=== PATIENT | male | born 1940 | race Caucasian/White ===

== ENCOUNTER 2017-06-16 13:57 | Inpatient (IN) | payer MEDICARE ==
[~2017-06-16] VITALS: Ht 180.3 cm; Wt 103.3 kg
[~2017-06-16 13:57] MED LIST: AMLO5TAB2 PO; ASPI81TA18 PO; CALC0.5C6 PO; CYAN1000VL IM; DRIS50002 PO; FINA5TAB2 PO; FURO40TA2 PO; GLIM1TAB PO; IRON65TA PO; METO1TAB32 PO; NEPHTAB PO; PHOS667C5 PO; PROC1INJ5 IJ; TAMS0.4C2 PO; TYLE325T5 PO; VITA500T PO
[2017-06-16] MEDS ORDERED: RENATAB5 PO (14:07)
[2017-06-16] MEDS ORDERED: LEVO500T3 PO (14:07)
[2017-06-16] MEDS ORDERED: K-TA10TA PO (14:07)
[2017-06-16 14:57] LABS: ADD MORPHOLOGY? YES; BASO % 0.2 % (0.0-1.0); EOS # 0.2 K/mm3 (0.0-0.50); EOS % 1.9 % (0.0-3.0); LARGE UNSTAINED CELL # 0.2 K/mm3 (0.0-0.4); LYMPH # 4.3 K/mm3 (1.5-4.5); LYMPH % 33.3 % (24.0-44.0); MEAN CORPUSCULAR HEMOGLOBIN 35.1 pg (27.0-33.0); MEAN CORPUSCULAR VOLUME 106.5 fl (80.0-96.0); MONO # 0.8 K/mm3 (0.0-0.8); MONO % 6.3 % (0.0-5.0); NEUTROPHILS # 6.8 K/mm3 (1.8-7.7); NEUTROPHILS % 56.4 % (36.0-66.0); PLATELET COUNT, AUTOMATED 263 k/mm3 (150-450); RED CELL DISTRIBUTION WIDTH 15.6 % (11.5-14.5)
[2017-06-16 15:28] LABS: ALBUMIN 2.1 GM/DL (3.2-5.2); ALBUMIN/GLOBULIN RATIO 0.51 (1.00-1.93); BILIRUBIN,DIRECT 0.1 MG/DL (0.0-0.2); BILIRUBIN,TOTAL 0.4 MG/DL (0.2-1.0); CALCIUM LEVEL 7.6 MG/DL (8.8-10.2); CREATININE FOR GFR 7.91 MG/DL (0.70-1.30); GLOMERULAR FILTRATION RATE 7.1 (>42); POTASSIUM SERUM 2.5 MEQ/L (3.5-5.1); TOTAL PROTEIN 6.2 GM/DL (6.4-8.2)
[2017-06-16 15:33] LABS: ANISOCYTOSIS 2+
[2017-06-16] MEDS ORDERED: GLIM4TAB PO (15:41)
[2017-06-16] MEDS ORDERED: ASCO500T PO (15:41)
[2017-06-16] MEDS ORDERED: METO25TA4 PO (15:41)
[2017-06-16] MEDS ORDERED: [UNRECOGNIZED DRUG - CODE] INJ (15:41)
[2017-06-16] MEDS ORDERED: FLOM5CAP PO (15:41)
[2017-06-16] MEDS ORDERED: NS 1,000 ML IV SCH (15:44)
[2017-06-16] MEDS ORDERED: POTASSIUM CHLORIDE 10 MEQ SR TABLET PO ONE ×2 (15:45→20:00)
[2017-06-16] MEDS ORDERED: KCL 10MEQ IN 100ML SWI (KRUN) 10 MEQ in APPROPRIATE DILUENT 1 EA IV ONE ×2 (15:45)
[2017-06-16] MEDS ORDERED: LevoFLOXacin IV 750 MG in APPROPRIATE DILUENT 1 EA IV ONE (16:00)
[2017-06-16] MEDS ORDERED: PROMETHAZINE INJ 25 MG/ML VIAL (J2550) IV ONE (16:15)
[2017-06-16] MEDS ORDERED: ONDANSETRON 4MG/2ML VIAL (J2405) IV ONE (16:15)
[2017-06-16] MEDS ORDERED: ACETAMINOPHEN TAB 650MG DOSE (2X325MG) PO PRN (18:00)
[2017-06-16] MEDS ORDERED: GLUCOSE 4 GM CHEW TABLET PO PRN (18:00)
[2017-06-16] MEDS ORDERED: GLUCAGON FOR INJ 1 MG VIAL (J1610) SC PRN (18:00)
[2017-06-16] MEDS ORDERED: DEXTROSE 50% 50 ML SYRINGE IV PRN (18:00)
[2017-06-16] MEDS ORDERED: KCL 20MEQ in NS 1000ML 1,000 ML IV SCH (18:00)
[2017-06-16] MEDS ORDERED: PROMETHAZINE INJ 25 MG/ML VIAL (J2550) IM PRN (18:00)
--- NOTE | 2017-06-16 18:41 | REP ---
Clinical: Nausea and vomiting with diarrhea. Comparison: 11/16/2015. Findings: Moderate amount of ascites appreciated and peritoneal dialysis catheter is identified in the pelvis. Hepatic and splenic calcifications suggest prior granulomas disease. Pancreas, gallbladder, and bilateral adrenal glands are relatively normal. Right kidney is unremarkable. Left kidney demonstrates multiple rounded lesions predominantly of low density, but with few basilar rim calcifications and increased density suggesting both simple and complex cysts measuring up to 3.5 cm diameter and essentially unchanged compared to 09/22/2015. The bowel gas pattern is nonspecific and evidence for postsurgical changes with an anastomosis noted in the right lower quadrant. Pelvis demonstrates collapsed bladder and enlarged heterogeneous prostate gland measuring greater than 7.5 cm maximal diameter. No free air. No adenopathy. Atherosclerotic changes of the aorta and vasculature noted without aneurysm. Musculoskeletal structures demonstrate age-related degenerative changes without focal osseous abnormality. Lung bases demonstrate small left pleural effusion/reaction. The previously identified hematoma in the midline anterior abdominal wall has resolved. Impression: 1. Moderate amount of abdominal fluid consistent with peritoneal dialysis. 2. Simple and complex left renal cysts essentially unchanged compared to 09/22/2015. 3. Enlarged heterogeneous prostate gland measuring greater than 7.5 cm maximal diameter. 4. Further chronic changes as described above. 5. No obvious acute abdominopelvic pathology otherwise appreciated. However evaluation is limited by the lack of both oral and intravenous contrast material. Signed by Rex Cardenas MD 06/16/2017 06:31 P
[2017-06-16 19:14] LABS: CALCIUM LEVEL 7.6 MG/DL (8.8-10.2); CREATININE FOR GFR 8.15 MG/DL (0.70-1.30); GLOMERULAR FILTRATION RATE 6.8 (>42); MAGNESIUM LEVEL 1.2 MG/DL (1.8-2.4); POTASSIUM SERUM 2.6 MEQ/L (3.5-5.1)
[2017-06-16] MEDS: MAG SULF 1GM/100ML (MAG RUN) 1 GM in APPROPRIATE DILUENT 1 EA IV SCH (20:00)
[2017-06-16] MEDS ORDERED: MAG SULF 1GM/100ML (MAG RUN) 1 GM in APPROPRIATE DILUENT 1 EA IV ONE (20:00)
[2017-06-16] MEDS ORDERED: CEFEPIME HCL 0.5 GM in D5W MINI-BAG PLUS 50 ML IV SCH (20:30)
[2017-06-16] MEDS: HumaLOG INSULIN (NovoLOG) PER UNIT SC SCH (21:00)
[2017-06-16 21:15] VITALS: BP 150/62
[2017-06-16] MEDS: LACTOBACILLUS ACIDOPHILUS CAP (BACID) PO SCH (21:44)
[2017-06-16] MEDS: TAMSULOSIN 0.4 MG CAP PO SCH (21:44)
[2017-06-16] MEDS: FERROUS SULFATE 325MG TAB PO SCH (21:44)
[2017-06-16] MEDS: KCL 10MEQ IN 100ML SWI (KRUN) 10 MEQ in APPROPRIATE DILUENT 1 EA IV SCH ×2 (21:46)
[2017-06-16] MEDS: POTASSIUM CHLORIDE 10 MEQ SR TABLET PO SCH (21:51)
[2017-06-16] MEDS: METOPROLOL TART 25 MG TABLET PO SCH (21:51)
--- NOTE | 2017-06-16 21:59 | HPEPDOC ---
General Date of Admission Other Providers PCP: Dr. Kay Attending Physician: BELINDA ESTEVES MD Chief Complaint The patient is a 76-year-old male admitted with a reason for visit of Nausea/ Vomiting. History of Present Illness Patient is a pleasant 76-year-old male with past medical history significant for end-stage renal disease on peroneal dialysis, type 2 diabetes, coronary artery disease with 2 stent placement, hypertension, previous pulmonary embolism presents to the emergency room with a one-week history of vomiting diarrhea and chills. Patient states this all began around Monday. He was not feeling himself and not feeling well. He discussed this with Dr. Brock and prescribe patient antibiotics for his peritonitis. Patient reported vomiting every single day. He reports vomiting every time he eats. He vomited so much she lost count and doesn't remember how many times a day. Patient also reports having diarrhea since this started. He describes it as watery and brown. Patient reports having abdominal discomforts feels like lots of gas. His is new for him. Denies any blood per rectum or black stool. Patient missed to having chills but denies any bright years. Reported that he had a temperature of 95F yesterday. Did not take his temperature. But has self reported fever. Since patient was not improving he called the office today. Was told to go to the hospital to receive IV antibiotics. Home Medications Scheduled (Iron) 325 Mg Tab, 325 MG PO BID, (Reported) (Aspirin EC Low Dose) 81 Mg Tab, 81 MG PO DAILY, (Reported) (Sandi-Deisy) 1 Tab Tab, 1 TAB PO DAILY, (Reported) Ascorbic Acid (Ascorbic Acid) 500 Mg Tab, 500 MG PO DAILY, (Reported) Calcium Acetate (Phoslo) 667 Mg Cap, 667 MG PO WM, (Reported) HAS NOT BEEN EATING, SO HAS NOT TAKEN IN APPROX A WEEK Glimepiride (Glimepiride) 4 Mg Tab, 4 MG PO BID, (Reported) Levofloxacin Hemihydrate (Levofloxacin) 500 Mg Tab, 500 MG PO Q2D, (Reported) FILL 06/13 FOR 16 DAYS Methoxy Polyethylene Glycol-Ep (Mircera) 100 Mcg/0.3 Ml Inj, 300 MCG INJ Q2WK, ( Reported) Metoprolol Tartrate (Metoprolol Tartrate) 25 Mg Tab, 25 MG PO BID, (Reported) Potassium Chloride (K-Tabs) 10 Meq Tab, 10 MEQ PO BID, (Reported) Tamsulosin Hydrochloride (Flomax) 0.4 Mg Cap, 0.4 MG PO QHS, (Reported) Scheduled PRN Acetaminophen (Tylenol) 325 Mg Tab, 650 MG PO Q6HP PRN for PAIN / FEVER, ( Reported) Allergies Coded Allergies: No Known Allergies (Unverified , 06/16/17) Past Medical History Medical History 1. End-stage renal disease with peritoneal dialysis 2. Anemia chronic disease 3. History of pulmonary embolism 4. Type 2 diabetes 5. Coronary disease with stent placements 2. Last one being 2002 6. Aortic valve stenosis 7. Hyperlipidemia 8. BPH Surgical History 1. Peritoneal dialysis placement Review of Symptoms Constitutional: Reports: Chills, Fever, Denies: Night Sweats, Weakness, Fatigue Eyes: Denies: Pain, Vision change ENT: Reports: Head Aches (off-and-on. Not every day. Did not take anything for it.) Skin: Denies: Rash, Lesions, Jaundice Pulmonary: Denies: Dyspnea Cardiovascular: Denies: Chest Pain, Palpitations Gastrointestinal: Reports: Nausea, Vomiting, Other Symptoms (bloating.) Genitourinary: Reports: Other Symptoms (still urinating.), Denies: Dysuria, Frequency Hematologic: Denies: Bruising, Bleeding Excessively Endocrine: Denies: Polydipsia, Polyphagia Musculoskeletal: Denies: Neck Pain Neurological: Denies: Change in speech, Confusion Psych: Reports: Mood Normal Physical Examination General Exam: Positive: Alert, Other (patient's orientated to the date of , place, season. Not orientated to date. 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 moist/pink, Pharynx Normal, Tongue Midline, Nares Patent, Other ENT (No tonsilar exudates. ), Negative: Pharyngeal Edema Neck Exam: Negative: Supple, JVD, thyromegaly Chest Exam: Positive: Clear to auscultation, Normal air movement, Negative: Rales, Wheezing Heart Exam: Positive: Rate Normal, Normal S1, Normal S2, Negative: Bradycardic Telemetry: Positive: PVCs Abdomen Exam: Positive: Soft, Other (Distended. Diminished bowel sounds. ), Negative: Tenderness Extremity Exam: Negative: Clubbing, Cyanosis, Edema Skin Exam: Positive: Nl turgor and temperature, Negative: Rash, Breakdown Neuro Exam: Positive: Strength at 5/5 X4 ext (Upper and lower extremity. ) Psych Exam: Positive: Mood NL Vital Signs Vital Signs Date Time Temp Pulse Resp B/P (MAP) Pulse Ox O2 Delivery O2 Flow Rate FiO2 06/16/17 19:13 98 98 06/16/17 18:58 134/63 (86) 06/16/17 13:59 97.3 16 Room Air Laboratory Data Labs 24H Laboratory Tests 2 06/16/17 14:36: White Blood Count 12.0H, Red Blood Count 3.25L, Hemoglobin 11.4L, Hematocrit 34.6L, Mean Corpuscular Volume 106.5H, Mean Corpuscular Hemoglobin 35.1H, Mean Corpuscular Hemoglobin Concent 33.0, Red Cell Distribution Width 15.6H, Platelet Count 263, Neutrophils (%) (Auto) 56.4, Lymphocytes (%) (Auto) 33.3, Monocytes (%) (Auto) 6.3H, Eosinophils (%) (Auto) 1.9, Basophils (%) (Auto) 0.2 , Neutrophils # (Auto) 6.8, Lymphocytes # (Auto) 4.3, Monocytes # (Auto) 0.8, Eosinophils # (Auto) 0.2, Basophils # (Auto) 0.0, Large Unclassified Cells % 2.0 , Large Unclassified Cells # 0.2, Platelet Estimate NORMAL, Anisocytosis 2+, Macrocytosis 2+, Anion Gap 15, Glomerular Filtration Rate 7.1L, Calcium Level 7.6L, Aspartate Amino Transf (AST/SGOT) 14L, Alanine Aminotransferase (ALT/SGPT ) 27, Alkaline Phosphatase 115, Total Bilirubin 0.4, Direct Bilirubin 0.1, Total Protein 6.2L, Albumin 2.1L, Albumin/Globulin Ratio 0.51L, Lipase 400H 06/16/17 15:05: Urine Appearance HAZY, Urine Color YELLOW, Urine pH 5.0, Urine Specific [place] 1.039, Urine Protein 2+H, Urine Glucose (UA) 3+H, Urine Ketones NEGATIVE, Urine Urobilinogen 0.2, Urine Bilirubin NEGATIVE, Urine Leukocyte Esterase 1+H, Urine Blood NEGATIVE, Urine Nitrite NEGATIVE, Urine WBC (Auto) 53H, Urine RBC (Auto) 4H, Urine Hyaline Casts (Auto) 0, Urine Bacteria (Auto) 1+H, Urine Squamous Epithelial Cells 9, Urine Transitional Epithelial Cells 1, Urine Amorphous Sediment SMALLH, Urine Mucus (Auto) SMALL, Urine Sperm (Auto) 06/16/17 18:28: Anion Gap 14, Glomerular Filtration Rate 6.8L, Calcium Level 7.6L, Lactic Acid Level 3.9*H, Blood Urea Nitrogen 37H, Creatinine 8.15H, Sodium Level 138, Potassium Level 2.6*L, Chloride Level 97L, Carbon Dioxide Level 27, Magnesium Level 1.2L, C-Reactive Protein, Quantitative 1.78H CBC/BMP Laboratory Tests 06/16/17 14:36 Red Blood Count 3.25 L, Mean Corpuscular Volume 106.5 H, Mean Corpuscular Hemoglobin 35.1 H, Mean Corpuscular Hemoglobin Concent 33.0, Red Cell Distribution Width 15.6 H, Neutrophils (%) (Auto) 56.4, Lymphocytes (%) (Auto) 33.3, Monocytes (%) (Auto) 6.3 H, Eosinophils (%) (Auto) 1.9, Basophils (%) ( Auto) 0.2, Neutrophils # (Auto) 6.8, Lymphocytes # (Auto) 4.3, Monocytes # (Auto ) 0.8, Eosinophils # (Auto) 0.2, Basophils # (Auto) 0.0 06/16/17 18:28 Calcium Level 7.6 L Microbiology Microbiology 06/16/17 Blood Culture, Received Pending 06/16/17 Blood Culture, Received Pending 06/16/17 Urine Culture, Received Pending Assessment/Plan 1. Peritonitis Patient was on antibiotic outpatient. Started on IV antibiotics in ER. Patient was given Levaquin and will be started on Cefepime. Consulting Nephrology. Called and discussed patient. Agreed to see patient. Appreciate their assistance in management of patient at this time. Monitoring WBC, temperature. Ordering c reactive protein. 2. Nausea and vomiting, diarrhea GI panel ordered for possible infectious causes. Monitoring electrolytes with BMP q6h. Continuing Phenergan q6h prn for nausea. Patient had relief in ER. Starting patient on bacid to decreased chance of C. diff. Ordering lactic acid. 3. Hypokalemia K was 2.5 in ER. Patient received IV and oral K. Monitoring K. 4. Chronic kidney disease, Peritoneal dialysis Nephrology consulted. Monitoring creatinine and urine output. Continue IV fluids. 5. Hypertension holding HCTZ at this time. Continue Metoprolol. monitor BP. 6. BPH Continue flomax. monitor urine output. 7. Diabetes, type II Holding home medication, Glimepiride. Starting insulin with sliding scale. Hypoglycemic protocol. Plan / VTE VTE Prophylaxis Ordered?: Yes (knee high. Heparin. ) Plan Plan Clear Liquid Diet. PT consult. GME ATTESTATION GME ATTESTATION My preceptor for this patient encounter was physically present in the building during the encounter and was fully available. As needed, all aspects of the patient interview, examination, medical decision making process, and medical care plan development were reviewed and approved by the preceptor. Preceptor is aware and concurs with the plan as stated in the body of this note and will attest to such by his/her cosignature. ATTENDING NOTE Patient seen and examined. Case discussed with the resident in detail. Agree with above. TESHA Prince MD, DO Jun 16, 2017 20:08 BELINDA ESTEVES MD Jun 19, 2017 11:49
[2017-06-16] MEDS: CEFEPIME HCL 1 GM in D5W MINI-BAG PLUS 50 ML IV SCH (23:11)
[2017-06-16 23:59] VITALS: BP 128/69
[2017-06-17] MEDS: MAG SULF 1GM/100ML (MAG RUN) 1 GM in APPROPRIATE DILUENT 1 EA IV SCH (00:10)
[2017-06-17] MEDS: GENTAMICIN SULF INJ 80MG/2ML VIAL (J1580) IP SCH ×2 (00:29→21:23)
[2017-06-17] MEDS: KCL 10MEQ IN 100ML SWI (KRUN) 10 MEQ in APPROPRIATE DILUENT 1 EA IV SCH ×2 (00:30)
[2017-06-17 00:32] LABS: CALCIUM LEVEL 7.2 MG/DL (8.8-10.2); CREATININE FOR GFR 8.5 MG/DL (0.70-1.30); GLOMERULAR FILTRATION RATE 6.5 (>42); MAGNESIUM LEVEL 1.5 MG/DL (1.8-2.4); POTASSIUM SERUM 2.8 MEQ/L (3.5-5.1)
[2017-06-17] MEDS ORDERED: POTASSIUM CHLORIDE 10 MEQ SR TABLET PO ONE ×2 (01:00→09:15)
[2017-06-17] MEDS: POTASSIUM CHLORIDE INJ 40 MEQ in NS 0.45% 1,000 ML IV SCH ×3 (01:41→22:06)
[2017-06-17 02:46] LABS: PERITONEAL DIALYSATE FL COLOR PALE YELLOW (COLORLESS)
[2017-06-17 02:48] LABS: BF DIFF IF INDICATED? YES (NO); RBC PERITONEAL DIALYSATE < 10 (<10mm3 cells/uL); TNC PERITONEAL DIALYSATE 96 cells/uL (0-20)
[2017-06-17 03:08] LABS: CC BF DIFF EXAM CYTOCENTRIFUGE
[2017-06-17 04:45] VITALS: BP 128/67
[2017-06-17 05:49] LABS: CALCIUM LEVEL 7.4 MG/DL (8.8-10.2); CREATININE FOR GFR 8.49 MG/DL (0.70-1.30); GLOMERULAR FILTRATION RATE 6.5 (>42); MAGNESIUM LEVEL 1.7 MG/DL (1.8-2.4); PHOSPHORUS LEVEL 3.2 MG/DL (2.5-4.9); POTASSIUM SERUM 3.1 MEQ/L (3.5-5.1)
[2017-06-17] MEDS: HumaLOG INSULIN (NovoLOG) PER UNIT SC SCH ×4 (07:22→21:00)
[2017-06-17 07:53] VITALS: BP 121/59
[2017-06-17] MEDS: CALCIUM ACETATE 667 MG GELCAP PO SCH ×3 (08:00→17:51)
[2017-06-17] MEDS: POTASSIUM CHLORIDE 10 MEQ SR TABLET PO SCH ×3 (09:00→21:22)
[2017-06-17] MEDS: ASPIRIN 81 MG ENTERIC TAB PO SCH (09:03)
[2017-06-17] MEDS: METOPROLOL TART 25 MG TABLET PO SCH ×2 (09:03→21:23)
[2017-06-17] MEDS: FERROUS SULFATE 325MG TAB PO SCH ×2 (09:03→21:22)
[2017-06-17] MEDS: ASCORBIC ACID 500 MG TAB PO SCH (09:03)
[2017-06-17] MEDS: HEPARIN SOD (PORCINE) 5000 UNITS/ML VIAL SC SCH ×2 (09:03→21:22)
[2017-06-17] MEDS: LACTOBACILLUS ACIDOPHILUS CAP (BACID) PO SCH ×3 (09:03→21:22)
[2017-06-17] MEDS: MAGNESIUM OXIDE 400 MG TAB (MAG-OX) PO SCH (09:53)
[2017-06-17] MEDS ORDERED: CALCIUM GLUCONATE 1,000 MG in D5W MINI-BAG PLUS 100 ML IV ONE (10:00)
[2017-06-17] MEDS ORDERED: MAG SULF 1GM/100ML (MAG RUN) 1 GM in APPROPRIATE DILUENT 1 EA IV ONE (11:00)
[2017-06-17 11:49] VITALS: BP 127/60
[2017-06-17] MEDS ORDERED: CALCIUM CARBONATE 500 MG CHEW U/D PO ONE (12:00)
[2017-06-17 13:41] LABS: MEAN CORPUSCULAR HEMOGLOBIN 36.4 pg (27.0-33.0); MEAN CORPUSCULAR VOLUME 107.1 fl (80.0-96.0); RED CELL DISTRIBUTION WIDTH 15.4 % (11.5-14.5); WHITE BLOOD COUNT 12.3 K/mm3 (4.0-10.0)
[2017-06-17 13:50] LABS: CALCIUM LEVEL 7.7 MG/DL (8.8-10.2); CREATININE FOR GFR 8.18 MG/DL (0.70-1.30); GLOMERULAR FILTRATION RATE 6.8 (>42); MAGNESIUM LEVEL 1.9 MG/DL (1.8-2.4); POTASSIUM SERUM 3.6 MEQ/L (3.5-5.1)
--- NOTE | 2017-06-17 14:04 | IPNPDOC ---
Text Note Date of Service The patient was seen on 06/17/17. NOTE CC:The patient is a 76-year-old male admitted with a reason for visit of Nausea/ Vomiting. Subjective: Patient notes improvement. Denies any abdominal pain or nausea. Feels a lot better since being in the hospital. Was not able to urinate, states he usually is able to have a little. No bloating. Patient's is planning on coming back to visit patient later today. Discussed fishing with patient. Seems more lively today. Objective: Vitals: (see below) General: No acute distress, lying comfortably in bed. HEENT: Moist mucous membranes. Neck: No JVD or lymphadenopathy Cardiac: Normal s1 and s2. No murmurs. Pulm: Clear to auscultation bilateral. No wheezing, rhonchi Abd: Round. Distension. Bowel sounds to auscultation. No tenderness to palpation. Ext: No edema or cyanosis. Pysch: Normal affect. Labs (see below) Images: Assessment/Plan 1. Peritonitis: Patient was on antibiotic outpatient. Started on IV antibiotics in ER. Levaquin discontinued. Continue patient on Cefepime and Gentamicin. Consulting Nephrology. Appreciate their assistance in management of patient at this time. Monitoring WBC, temperature. Afebrile. Blood culture x2 pending. Urine culture no growth. Peritoneal fluid gram stain: moderate WBCs, no organisms. GI panel ordered. Item Value Date Time White Blood Count 12.3 K/mm3 H 06/17/17 0504 2. Nausea and vomiting, diarrhea: GI panel ordered for possible infectious causes. Monitoring electrolytes with BMP q6h. Phenergan q6h prn for nausea. Patient had relief in ER. Continue patient on Bacid to decreased chance of C. diff. Recent lactic acid 3.7. May be due to patient's dehydration. On IV fluids at this time. Patient had some heart burn this morning. Giving patient some Tums one time and reassess. 3. Hypokalemia: K improved to 3.1 this morning. Patient received IV and oral K overnight. Patient is receiving peritoneal dialysis. 4. Chronic kidney disease, Peritoneal dialysis: Nephrology consulted. Monitoring creatinine and urine output. Continue IV fluids. 5. Hypertension: holding HCTZ at this time. Continue Metoprolol. monitor BP. 6. BPH: Continue flomax. monitor urine output. 7. Diabetes, type II: Holding home medication, Glimepiride. Starting insulin with sliding scale. Hypoglycemic protocol. Monitoring patient's glucose. Low this morning. DVT prophy:inés HULL. Dispo: Monitoring patient. Appreciate assistance of nephrology for care of this patient. Continue antibiotics. VS,Fishbone, I+O VS, Fishbone, I+O Laboratory Tests 06/16/17 14:36 Red Blood Count 3.25 L, Mean Corpuscular Volume 106.5 H, Mean Corpuscular Hemoglobin 35.1 H, Mean Corpuscular Hemoglobin Concent 33.0, Red Cell Distribution Width 15.6 H, Neutrophils (%) (Auto) 56.4, Lymphocytes (%) (Auto) 33.3, Monocytes (%) (Auto) 6.3 H, Eosinophils (%) (Auto) 1.9, Basophils (%) ( Auto) 0.2, Neutrophils # (Auto) 6.8, Lymphocytes # (Auto) 4.3, Monocytes # (Auto ) 0.8, Eosinophils # (Auto) 0.2, Basophils # (Auto) 0.0 06/16/17 18:28 Calcium Level 7.6 L 06/16/17 23:49 Calcium Level 7.2 L 06/17/17 05:03 Calcium Level 7.4 L Vital Signs Date Time Temp Pulse Resp B/P (MAP) Pulse Ox O2 Delivery O2 Flow Rate FiO2 06/17/17 11:49 96.7 72 18 127/60 (82) 100 Room Air I&O- Last 24 Hours up to 6 AM 06/17/17 06:00 Intake Total 3150 ml Output Total 1540 ml Balance 1610 ml GME ATTESTATION GME ATTESTATION I have both independently examined this patient as well as reviewed the dictated note. I have discussed in detail with the resident the findings and plan of treatment as documented in the residents note. I will continue to follow the patient and offer further guidance to the patients care as necessary during this hospital stay. TESHA WALKER DO Jun 17, 2017 13:10 SOLOMON MCWILLIAMS MD Jun 19, 2017 15:32
[2017-06-17 16:00] VITALS: BP 144/64
[2017-06-17 18:38] LABS: CALCIUM LEVEL 7.4 MG/DL (8.8-10.2); CREATININE FOR GFR 7.92 MG/DL (0.70-1.30); GLOMERULAR FILTRATION RATE 7.1 (>42); MAGNESIUM LEVEL 1.8 MG/DL (1.8-2.4); POTASSIUM SERUM 3.7 MEQ/L (3.5-5.1)
--- NOTE | 2017-06-17 18:47 | CR ---
DATE OF CONSULTATION: 06/17/2017 REQUESTING PHYSICIAN: Dr. Jose Walton. CONSULTING PHYSICIAN: Dr. Carr. REASON FOR CONSULTATION: Management of end-stage renal disease peritoneal dialysis, and acute peritonitis. CHIEF COMPLAINT: The patient presented to the emergency room with nausea and vomiting, and recent diagnosis of acute peritonitis. HISTORY OF PRESENT ILLNESS: Efraín Gould is a 76-year-old male with past medical history of end-stage renal disease on peritoneal dialysis, type 2 diabetic, multiple other comorbidities as mentioned below. He presented to the emergency room because [facility] because of persistent nausea, vomiting, diarrhea, chills, decreased appetite. He was diagnosed as acute peritonitis as outpatient. He was given intraperitoneal vancomycin and gentamicin, and he was also being given oral Levaquin, but his symptoms did not get better with the intraperitoneal intravenous (IV) antibiotics. He kept on throwing up. He was unable to keep any food down, and because of the abdominal discomfort and not feeling well, the patient was sent to the emergency room for further evaluation and management of peritonitis as inpatient. The patient was discussed with the on-call resident overnight by me. I already started him on intraperitoneal gentamicin. He was started on IV Levaquin. Peritoneal fluid cell count and culture and panculture were sent. I saw the patient today morning and patient reports that he is feeling a lot better since the time he came yesterday. He was also hydrated with IV fluids. Nephrology service is now following the patient for management of peritonitis, sepsis, end-stage renal disease, peritoneal dialysis, and multiple electrolyte abnormalities. PAST MEDICAL HISTORY: The patient has a past medical history of: 1. End-stage renal disease on peritoneal dialysis. 2. Diabetes mellitus type 2. 3. Coronary artery disease status post stents in the past. 4. Hyperlipidemia. 5. Benign prostatic hypertrophy (BPH). 6. Anemia. 7. Chronic kidney disease. PAST SURGICAL HISTORY: The patient has a past surgical history of: 1. Peritoneal dialysis catheter placement. 2. Coronary artery stent, latest one in 2002. ALLERGIES: The patient has no known drug allergies. FAMILY HISTORY: No significant family history of end-stage renal disease requiring hemodialysis. SOCIAL HISTORY: The patient denies any illicit drug abuse or alcohol abuse. REVIEW OF SYSTEMS: CONSTITUTIONAL: The patient reports fevers with chills, decreased appetite. EYES: He denies any blurry vision or double vision. ENT: He denies any dysphagia, odynophagia or ear discharge. CARDIOVASCULAR: He denies any chest pain or palpitations. RESPIRATORY: The patient denies any shortness of breath, cough or wheezing. GASTROINTESTINAL (GI): Patient reports nausea, vomiting, loose stools, pain abdomen and bloating. GENITOURINARY: He denies any dysuria or hematuria. HEMATOLOGIC/ONCOLOGIC: He denies any easy bruising or bleeding tendency. ENDOCRINE: Patient reports history of diabetes. MUSCULOSKELETAL: He denies any muscles aches and pains. CENTRAL NERVOUS SYSTEM (PACKAGING MATERIALS INSPECTOR): The patient denies any weakness, numbness or transient ischemic attack (TIA) in the past. PSYCHIATRIC: The patient denies any depression or anxiety. SKIN: He denies any rashes or ulcers. All other review of systems is negative. PHYSICAL EXAMINATION: GENERAL: The patient is awake, alert, and oriented times three, sitting in bed in no apparent distress. VITAL SIGNS: Temperature is 96.7 degrees Fahrenheit, blood pressure 127/60, pulse is 72, respiratory rate of 18, saturating 100% on room air. Intake and output: Urine output is not recorded. The patient is at 1200 mL positive according to peritoneal dialysis intake and output. HEAD/NECK: Extraocular muscles intact. Pupils equal, round, and reactive to light. Mucous membranes are moist. Neck is supple. There is no jugular venous distention (JVD). CARDIOVASCULAR: S1, S2. Regular rate. No murmur, rub, or gallop. RESPIRATORY: Clear to auscultation bilaterally. Bilateral equal air entry. No rales or rhonchi. ABDOMEN: Soft. Positive bowel sounds. Nontender. No rebound tenderness. The patient has left lower quadrant peritoneal dialysis catheter with clean exit site and clean tunnel. MUSCULOSKELETAL: No clubbing or cyanosis. Pulses are 2+. No edema of the extremities. CENTRAL NERVOUS SYSTEM (PACKAGING MATERIALS INSPECTOR): No focal neurological deficits. Power is 5/5 in all extremities. PSYCHIATRIC: Normal mood and affect. SKIN: No rashes or ulcers. LYMPHATIC: No significant cervical, axillary, or inguinal lymphadenopathy. LABORATORY DATA: CBC showed a WBC of 12, hemoglobin 11.4, platelets were 263. Urinalysis showed 2+ protein, negative nitrite, 1+ leukocyte esterase, and 53 WBC. Peritoneal fluid cell count was 96 and 40% of them were neutrophils, 49% lymphocytes, which indicates partially treated peritonitis. BMP done today showed sodium 138, potassium 3.6, chloride 100, bicarbonate 24, BUN 37, creatinine 8.1, glucose 138, lactic acid is three. Calcium 7.7. Ionized calcium is four. Phosphorus is 3.2. Magnesium was 1.7. Lactate was 3.7 this morning and repeat one is three. MICROBIOLOGY: Blood cultures negative so far. Urine culture is negative so far. Gram's stain of the peritoneal fluid showed moderate WBC, no organisms. GI panel is pending. IMAGING: CT scan of the abdomen and pelvis was done yesterday. It showed moderate amount of abdominal fluid consistent with peritoneal dialysis. No acute abdominal pathology. CURRENT INPATIENT MEDICATIONS: The patient's medications are all reviewed by me. He was given a dose of calcium gluconate 1 gram IV times one dose. He is currently on cefepime 1 gram IV every 48 hours. The patient was also given a dose of Levaquin in the emergency room. He got a dose of magnesium sulfate 1 gram IV yesterday, and another gram was ordered today morning. The patient is on half normal saline with 40 mEq of potassium at 100 mL an hour. - he is on vitamin C 500 mg daily - aspirin 81 mg daily - Phos-Lo one tablet with meals - TUMS 1 gram by mouth one dose - ferrous sulfate 325 mg by mouth twice a day - gentamicin 40 mg intraperitoneal daily - heparin subcutaneous - insulin sliding scale - magnesium oxide 400 mg by mouth daily - Lopressor 25 mg by mouth twice a day - Zofran as needed - potassium chloride 40 mEq by mouth twice a day - Flomax 0.4 mg by mouth at bedtime ASSESSMENT: A 76-year-old male with past medical history of end-stage renal disease on peritoneal dialysis, diabetes mellitus type 2, hypertension, coronary artery disease, admitted this time because of sepsis secondary to acute peritonitis, along with multiple electrolyte abnormalities. PLAN: 1. Acute peritonitis: The patient was empirically being treated with Levaquin and gentamicin. His peritoneal fluid cultures came back positive at peritoneal dialysis center. I would obtain the culture report after the weekend. As reported to me on admission, the culture was sensitive to gentamicin and Levaquin. I have continued the intraperitoneal gentamicin. His IV antibiotic has been started on cefepime which should ideally cover the peritoneal infection. The patient's lactate was high. He has been started on IV fluid hydration and lactate is slowly trending down. 2. Nausea, vomiting: It was most likely secondary to acute peritonitis and multiple electrolyte abnormalities. The patient is being hydrated with IV fluids. He is symptomatically getting better. 3. Severe hypokalemia: The patient had a potassium of 2.5 on admission. His IV fluids have been changed to half normal saline plus 40 mEq potassium chloride. The patient was also given IV potassium on admission. I have also started him on potassium chloride 40 mEq by mouth twice a day. 4. Hypocalcemia: The patient's ionized calcium is four, which is low. The patient was given a gram of calcium gluconate IV times one dose. He was also given a dose of TUMS orally by the primary team. 5. Hypomagnesemia: The patient was given magnesium sulfate 1 gram IV times two doses. Repeat magnesium level is better. 6. Hypertension: Blood pressure is acceptable at this time. Continue metoprolol. No tight blood pressure control in this patient with sepsis secondary to acute peritonitis. 7. Diabetes mellitus type 2: Continue insulin sliding scale as per primary team. Sulfonylurea was held by the primary team on admission. 8. Anemia secondary to end-stage renal disease: The patient's hemoglobin is 10.3 which is acceptable at this time. No need of Aranesp administration at this time. Thank you for involving us in the care of this patient. We shall be happy to follow the patient along with you tomorrow morning. The plan of care was discussed with the on-call resident overnight by me already. Medication orders were changed.
--- NOTE | 2017-06-17 19:18 | ECGEPIP ---
Stationary ECG Study [facility] - ED Test Date: 2017-06-16 Pat Name: BOBY CUNNINGHAM Department: Room: - Gender: M Product Marketing Intern: rn : 1940 Requested By: JUAN RAMON Knott Order Number: [id number] Reading MD: Margarito Miranda Measurements Intervals [address] Rate: 80 P: 84 NC: 190 QRS: -57 QRSD: 134 T: 86 QT: 428 QTc: 495 Interpretive Statements SINUS RHYTHM WITH FREQUENT VENTRICULAR PREMATURE COMPLEXES WITH OCCASIONAL SUPRAVENTRICULAR PREMATURE COMPLEXES INTRAVENTRICULAR CONDUCTION DELAY LEFT VENTRICULAR HYPERTROPHY AND ST-T CHANGE CW 11/16/15 RATE INCREAESED INCREASED ECTOPY AXIS CHANGE Electronically Signed On 06-17-2017 19:18:04 EDT by Margarito Miranda
[2017-06-17 19:41] VITALS: BP 172/82
[2017-06-17] MEDS: TAMSULOSIN 0.4 MG CAP PO SCH (21:22)
[2017-06-17 22:43] LABS: CREATININE FOR GFR 7.77 MG/DL (0.70-1.30); GLOMERULAR FILTRATION RATE 7.2 (>42); MAGNESIUM LEVEL 1.9 MG/DL (1.8-2.4); POTASSIUM SERUM 3.6 MEQ/L (3.5-5.1)
[2017-06-17 23:59] VITALS: BP 126/61
[2017-06-18 04:26] VITALS: BP 147/66
[2017-06-18 06:38] LABS: MEAN CORPUSCULAR HGB CONC 33.6 g/dl (32.0-36.5); MEAN CORPUSCULAR VOLUME 107.3 fl (80.0-96.0); RED CELL DISTRIBUTION WIDTH 15.5 % (11.5-14.5); WHITE BLOOD COUNT 10.7 K/mm3 (4.0-10.0)
[2017-06-18 06:52] LABS: CALCIUM LEVEL 7.8 MG/DL (8.8-10.2); CREATININE FOR GFR 7.45 MG/DL (0.70-1.30); GLOMERULAR FILTRATION RATE 7.6 (>42); MAGNESIUM LEVEL 1.7 MG/DL (1.8-2.4); POTASSIUM SERUM 4.3 MEQ/L (3.5-5.1)
[2017-06-18] MEDS: ONDANSETRON 4MG/2ML VIAL (J2405) IV PRN (07:16)
[2017-06-18 07:47] LABS: BF DIFF IF INDICATED? NO (NO); PERITONEAL FL COLOR COLORLESS (COLORLESS); RBC PERITONEAL FLUID < 10 (<10mm3 cells/uL); TNC PERITONEAL FLUID < 20 cells/uL (0-20)
[2017-06-18 08:00] VITALS: BP 127/61
[2017-06-18] MEDS: HEPARIN SOD (PORCINE) 5000 UNITS/ML VIAL SC SCH ×2 (08:33→21:07)
[2017-06-18] MEDS: METOPROLOL TART 25 MG TABLET PO SCH ×2 (08:33→21:06)
[2017-06-18] MEDS: ASPIRIN 81 MG ENTERIC TAB PO SCH (08:33)
[2017-06-18] MEDS: LACTOBACILLUS ACIDOPHILUS CAP (BACID) PO SCH ×3 (08:33→21:05)
[2017-06-18] MEDS: MAGNESIUM OXIDE 400 MG TAB (MAG-OX) PO SCH ×2 (08:33→21:06)
[2017-06-18] MEDS: HumaLOG INSULIN (NovoLOG) PER UNIT SC SCH ×4 (08:35→21:00)
[2017-06-18] MEDS: POTASSIUM CHLORIDE INJ 40 MEQ in NS 0.45% 1,000 ML IV SCH (08:37)
[2017-06-18] MEDS ORDERED: PROMETHAZINE INJ 25 MG/ML VIAL (J2550) IV PRN (09:15)
[2017-06-18] MEDS: POTASSIUM CHLORIDE 10 MEQ SR TABLET PO SCH (09:54)
[2017-06-18] MEDS: CALCIUM ACETATE 667 MG GELCAP PO SCH ×3 (09:54→17:08)
[2017-06-18] MEDS: ASCORBIC ACID 500 MG TAB PO SCH (09:55)
[2017-06-18] MEDS: FERROUS SULFATE 325MG TAB PO SCH (09:55)
[2017-06-18] MEDS ORDERED: CALCIUM GLUCONATE 1,000 MG in D5W MINI-BAG PLUS 100 ML IV ONE (11:00)
[2017-06-18 12:00] VITALS: BP 130/60
[2017-06-18] MEDS ORDERED: MAG SULF 1GM/100ML (MAG RUN) 1 GM in APPROPRIATE DILUENT 1 EA IV ONE (12:00)
--- NOTE | 2017-06-18 12:10 | IPN ---
DATE: 06/18/2017 Mr. Gould is feeling somewhat more nauseous this morning. He is not nauseous at baseline but when he tried to take in some Jello. He became nauseous. He has not vomited. He has not been able to take his pills. No abdominal pain. Temperature 97.5, pulse 91, respiratory rate 20, blood pressure 127/61, 98% room air. Positive fluid balance 2530. Two bowel movements noted thus far today. He is awake, appears somewhat uncomfortable lying in bed. Neck supple, thick. Mucous membranes moist. Breathing is symmetrical. No accessory muscle use. Speaks in complete sentences. Heart is distant sounding. Normal S1, S2. Radial pulse is 2+. Abdomen is soft. Somewhat tympanic, distended, nontender. White cell count 10.7, hemoglobin 10.1, platelets 498. BUN 32, creatinine 0.74, magnesium 1.7. My assessment is as follows: This is a 76-year-old with peritonitis related to peritoneal dialysis. Plan is as follows: 1. Peritonitis: The patient is being managed by Dr. Carr who has obtained cultures from his outpatient practice. Continue with the current antibiotics as ordered. 2. The patient has nausea and vomiting and has had diarrhea. GI panel is negative. Nausea and vomiting most likely related to peritonitis. I have added some Phenergan along with the Zofran which is only somewhat helpful. 3. The patient has electrolyte abnormalities including hypokalemia and hypomagnesemia and repleted as needed. 4. The patient has hypertension which is reasonably well controlled for the current setting. 5. The patient has benign prostatic hypertrophy (BPH). 6. The patient has type 2 diabetes. 7. The patient has appropriate deep venous thrombosis (DVT) prophylaxis.
[2017-06-18 12:25] LABS: CALCIUM LEVEL 7.2 MG/DL (8.8-10.2); CREATININE FOR GFR 7.32 MG/DL (0.70-1.30); GLOMERULAR FILTRATION RATE 7.7 (>42); MAGNESIUM LEVEL 1.8 MG/DL (1.8-2.4); POTASSIUM SERUM 4.4 MEQ/L (3.5-5.1)
[2017-06-18 16:00] VITALS: BP 128/70
[2017-06-18] MEDS ORDERED: LevoFLOXacin IV 500 MG in APPROPRIATE DILUENT 1 EA IV SCH (18:00)
--- NOTE | 2017-06-18 19:24 | IPN ---
DATE: 06/18/2017 SUBJECTIVE: The patient was seen and examined at the bedside today morning. The patient reports that he is feeling better. He is tolerating the peritoneal dialysis well. He continues to be on intravenous (IV) fluid. The patient reported that he is tolerating the liquid diet at this time. White cell count is trending down. His lactate level is also trending down, and cultures are negative so far. REVIEW OF SYSTEMS: The patient denies any fevers, chills, rigors, headaches, chest pain, shortness of breath. He denies any pain abdomen, constipation, or diarrhea. Rest of review of systems is negative. OBJECTIVE: VITAL SIGNS: Temperature is 97 degrees Fahrenheit, blood pressure 128/70, pulse 75, respiratory rate of 18, saturating 96% on room air. INTAKE AND OUTPUT: Urine output recorded as 200 mL yesterday, 50 mL so far today since overnight. The patient is 880 mL positive so far with his IV fluids and peritoneal dialysis. PHYSICAL EXAMINATION: GENERAL: The patient is awake, alert, and oriented times three, lying in bed in no apparent distress. HEAD/NECK: Extraocular muscles intact. Pupils equal, round, and reactive to light. Mucous membranes moist. Neck is supple. There is no jugular venous distention (JVD). CARDIOVASCULAR: S1, S2. Regular rate. No murmur, rub, or gallop. RESPIRATORY: Chest is clear to auscultation bilaterally. Bilateral equal air entry. No rales or rhonchi. ABDOMEN: Soft. Positive bowel sounds. Nontender. No rebound tenderness. He has a left lower quadrant peritoneal dialysis catheter with clean exit site. MUSCULOSKELETAL: No clubbing or cyanosis. Pulses are 2+. No edema of the extremities. CENTRAL NERVOUS SYSTEM (BIBLE TEACHER): No focal neurological deficit. Power is 5/5 in all extremities. PSYCHIATRIC: Normal mood and affect. LABORATORY DATA: CBC showed a WBC of 10.7, hemoglobin 10.1, platelets 198. Peritoneal fluid total nucleated cell count is less than 20. BMP showed sodium 137, potassium 4.4, chloride 102, bicarbonate 24, BUN 30, creatinine 7.3, glucose 129. Calcium 7.2, magnesium 1.8. (DICTATION ENDED ABRUPTLY)
--- NOTE | 2017-06-18 19:38 | IPN ---
DATE: 06/18/2017 CONTINUATION OF DAILY PROGRESS NOTE: That progress note was by mistake stopped in the middle. MICROBIOLOGY: Cultures are negative so far. CURRENT INPATIENT MEDICATIONS: The patient's medications are all reviewed by me. He continues to be on intravenous (IV) cefepime. The patient was given a dose of calcium gluconate 1 gram IV times one dose today morning. He was also given a dose of magnesium sulfate 1 gram IV. I have stopped his IV fluid. I have stopped the vitamin C as well. Ferrous sulfate dose has been changed to 325 mg by mouth daily. Magnesium oxide dose has been increased to 400 mg by mouth twice a day. Potassium chloride has been changed to 40 mEq by mouth daily. ASSESSMENT: A 76-year-old male with past medical history of end-stage renal disease on peritoneal dialysis, diabetes mellitus type 2, hypertension, coronary artery disease, admitted this time because of sepsis secondary to acute peritonitis along with multiple electrolyte abnormalities. PLAN: 1. Acute peritonitis: The patient is currently on intraperitoneal and IV antibiotics. Peritoneal fluid cell count has come down to normal. Continue the current antibiotic regimen. 2. Nausea and vomiting: This is significantly better today. The patient is tolerating the liquid diet right now. Advance diet as tolerated. 3. Severe hypokalemia: The patient's potassium level is improved to normal. Potassium dose has been changed to 40 mEq by mouth daily. IV potassium fluids have been stopped now. 4. Hypocalcemia: The patient was given another dose of calcium gluconate 1 gram IV today. 5. Hypomagnesemia: The patient was given another of dose of magnesium. Magnesium level has improved to normal. 6. Hypertension: Blood pressure is acceptable at this time. Continue current dose of metoprolol. 7. End-stage renal disease on peritoneal dialysis: The patient's home peritoneal dialysis regimen is a mixture of 2.5% at night and Extraneal in the morning time. Because of the sepsis and slightly elevated lactate level, I will continue the peritoneal dialysis at 1.5% fluid. Once the lactate level gets better and his volume status is optimized, I would change his PD prescription to 2.5%. The plan of care was discussed with the patient's RN at the bedside. EDU
[2017-06-18 20:00] VITALS: BP 165/72
[2017-06-18] MEDS: TAMSULOSIN 0.4 MG CAP PO SCH (21:06)
[2017-06-18] MEDS: CEFEPIME HCL 1 GM in D5W MINI-BAG PLUS 50 ML IV SCH (21:07)
[2017-06-18] MEDS: GENTAMICIN SULF INJ 80MG/2ML VIAL (J1580) IP SCH (21:07)
[2017-06-18 23:47] VITALS: BP 136/62
[2017-06-19] MEDS ORDERED: SLF 3 ML SYR IV PRN (00:30)
[2017-06-19 04:00] VITALS: BP 145/66
[2017-06-19 05:26] LABS: MEAN CORPUSCULAR HEMOGLOBIN 36.5 pg (27.0-33.0); MEAN CORPUSCULAR HGB CONC 34.4 g/dl (32.0-36.5); MEAN CORPUSCULAR VOLUME 105.9 fl (80.0-96.0); RED CELL DISTRIBUTION WIDTH 15.4 % (11.5-14.5)
[2017-06-19] MEDS: SLF 3 ML SYR IV SCH ×3 (05:44→21:09)
[2017-06-19 08:00] VITALS: BP 141/65
[2017-06-19 08:01] LABS: BF DIFF IF INDICATED? NO (NO); PERITONEAL FL COLOR COLORLESS (COLORLESS); RBC PERITONEAL FLUID < 10 (<10mm3 cells/uL); TNC PERITONEAL FLUID < 20 cells/uL (0-20)
[2017-06-19] MEDS: HumaLOG INSULIN (NovoLOG) PER UNIT SC SCH ×4 (08:09→21:00)
[2017-06-19] MEDS: CALCIUM ACETATE 667 MG GELCAP PO SCH (08:10)
[2017-06-19] MEDS: ASPIRIN 81 MG ENTERIC TAB PO SCH (08:10)
[2017-06-19] MEDS: LACTOBACILLUS ACIDOPHILUS CAP (BACID) PO SCH ×3 (08:10→21:07)
[2017-06-19] MEDS: HEPARIN SOD (PORCINE) 5000 UNITS/ML VIAL SC SCH ×2 (08:10→21:08)
[2017-06-19] MEDS: POTASSIUM CHLORIDE 10 MEQ SR TABLET PO SCH (08:11)
[2017-06-19] MEDS: MAGNESIUM OXIDE 400 MG TAB (MAG-OX) PO SCH ×2 (08:11→21:08)
[2017-06-19] MEDS: FERROUS SULFATE 325MG TAB PO SCH (08:11)
[2017-06-19] MEDS: METOPROLOL TART 25 MG TABLET PO SCH ×2 (08:12→21:07)
[2017-06-19 08:45] LABS: ALBUMIN 1.8 GM/DL (3.2-5.2); CALCIUM LEVEL 7.8 MG/DL (8.8-10.2); CREATININE FOR GFR 6.87 MG/DL (0.70-1.30); GLOMERULAR FILTRATION RATE 8.3 (>42); PHOSPHORUS LEVEL 1.9 MG/DL (2.5-4.9); POTASSIUM SERUM 4.1 MEQ/L (3.5-5.1)
[2017-06-19 12:00] VITALS: BP 160/67
--- NOTE | 2017-06-19 14:30 | IPN ---
DATE: 06/19/2017 Mr. Gould is complaining of some loose stool this morning, which is worse than yesterday. He does bring in his Flomax from home and apparently the dose at home is 0.8 mg instead of 0.4 mg. He did have some urinary retention yesterday. Hudson catheter was temporarily introduced and 650 mL of urine was produced. Hopefully increasing his level of Flomax will assist with his urinary retention. Temperature is 97.9, pulse 87, respiratory rate 18, blood pressure 141/65, 97% on room air. Body mass index is 31.8. Four bowel movements thus far today compared to two in total yesterday. Awake, appropriately interactive. Mucous membranes moist. Neck supple, thick. Breathing is symmetrical. I:E ratio is 1:3. No accessory muscle use. Speaking in complete sentences. Heart: Regular rate and rhythm. Abdomen: Soft, somewhat distended, nontender. White cell count 10, hemoglobin 9.7, platelets of 202. BUN 28, creatinine 6.8. Assessment is as follows: A 76-year-old with peritonitis related to peritoneal dialysis. Plan is as follows: 1. For peritonitis, this is now being followed by Dr. Brock. We are being guided by cultures from the outpatient practice. The patient has end-stage renal disease, on peritoneal dialysis. 2. The patient has nausea and vomiting and has had increasing diarrhea. Most likely this is antibiotic-associated diarrhea, but, again, we are sending a Clostridium difficile (C diff) due to his risk of Clostridium difficile colitis. Nausea has improved with the use of Phenergan and Zofran. 3. The patient has electrolyte abnormalities, which are being managed by nephrology. 4. The patient has hypertension, which is reasonably well controlled in the current setting. 5. The patient has BPH and urinary retention. We have increased his dose of Flomax. Will likely need to do a repeat straight catheterization (cath), or perhaps even have a Hudson catheter placed. The patient does follow with urology in [place] and may need to be discharged with a catheter if he continues to retain urine. 6. The patient has type 2 diabetes. 7. The patient has appropriate deep vein thrombosis (DVT) prophylaxis. [facility]
[2017-06-19 16:00] VITALS: BP 157/72
[2017-06-19 20:33] VITALS: BP 158/68
[2017-06-19] MEDS: TAMSULOSIN 0.4 MG CAP PO SCH (21:08)
[2017-06-19] MEDS: GENTAMICIN SULF INJ 80MG/2ML VIAL (J1580) IP SCH (21:09)
[2017-06-19] MEDS: ONDANSETRON 4MG/2ML VIAL (J2405) IV PRN (21:23)
[2017-06-20 00:08] VITALS: BP 127/61
[2017-06-20 04:37] VITALS: BP 159/75
[2017-06-20] MEDS: SLF 3 ML SYR IV SCH ×3 (06:00→20:46)
[2017-06-20] MEDS: ONDANSETRON 4MG/2ML VIAL (J2405) IV PRN (06:55)
[2017-06-20 07:01] LABS: MEAN CORPUSCULAR HEMOGLOBIN 36.4 pg (27.0-33.0); MEAN CORPUSCULAR HGB CONC 34.1 g/dl (32.0-36.5); MEAN CORPUSCULAR VOLUME 106.6 fl (80.0-96.0); RED CELL DISTRIBUTION WIDTH 15.5 % (11.5-14.5)
[2017-06-20 08:00] VITALS: BP 145/67
--- NOTE | 2017-06-20 09:12 | IPN ---
DATE OF SERVICE: 06/19/2017 SUBJECTIVE: The patient is seen this morning at the bedside. He is sitting out of bed with legs dangling, having breakfast. He states that his appetite has improved from prior. He does note ongoing diarrhea overnight, about three episodes of watery bowel movements. He had an episode of urinary retention yesterday. He is now resumed on his home dose of Flomax. He has been in positive fluid balance after his peritoneal dialysis (PD) prescription was changed from 2.5% exchanges at home to 1.5% exchanges while hospitalized. He denies any shortness of breath with exertion and remains comfortable on room air. REVIEW OF SYSTEMS: Positive for diarrhea and episode of urinary retention. Negative for fevers, chills, headaches, shortness of breath, chest pain, palpitations, nausea, vomiting. The remainder of review of systems is negative. VITAL SIGNS: Afebrile. 98.1. Pulse 76. Respiratory rate 18. Blood pressure 141/65. Saturating 97% on room air. INTAKE AND OUTPUT: Net retention from PD about 400 mL of fluid. Urine output 700 mL. In positive fluid balance 500 mL. Weight on the bed scale 103.5 kg, increased from 103 kg yesterday. PHYSICAL EXAMINATION: GENERAL: Awake, alert, sitting upright out of bed, legs dangling, eating breakfast, in good spirits. HEAD AND NECK: Extraocular muscles are intact. Pupils equal, round, and reactive to light. Mucous membranes are moist. There is no jugular venous distention. CARDIOVASCULAR: S1, S2. Regular rate. 2+ radial pulse. No edema of the extremities. RESPIRATORY: Bilateral symmetric air entry. ABDOMEN: Soft. Nontender left lower quadrant peritoneal dialysis catheter not examined today. MUSCULOSKELETAL: No clubbing. No cyanosis. NEUROLOGIC: No focal neurologic deficits. Power is 5/5 in all extremities. SKIN: No rashes or ulcers. PSYCHIATRIC: Normal mood and affect. LABORATORY REVIEW: White count 10, hemoglobin 9.7, platelet 202. Sodium 138, potassium 4.1, bicarbonate 26, phosphorus low 1.9, corrected calcium 9.4. Peritoneal fluid, total nucleated cell count less than 20 for 2 days in a row. Blood cultures from 06/16/2017 remain with no growth. Peritoneal fluid culture from outpatient PD clinic, I will obtain the results tomorrow when the clinic opens, for sensitivities. INPATIENT MEDICATIONS: Reviewed by me. The patient remains on cefepime. I have stopped his PhosLo, as he is hypophosphatemic. He remains on intraperitoneal gentamicin. He was given a dose of potassium chloride 40 mEq today and resumed on his home dose of Flomax. The remainder of the medications are unchanged from prior. PLAN: 1. Acute peritonitis. The patient has been on intraperitoneal dialysis for the past 2 years. This is his first episode of peritonitis. We will obtain his initial PD fluid culture, which was done at the outpatient center tomorrow after the . He continues on intraperitoneal gentamicin, along with intravenous (IV) cefepime. His total nucleated cell count in the PD fluid has remained less than 20. Depending on the sensitivities on his outpatient PD culture report, a regimen will be made for his antibiotics upon discharge. 2. Peritoneal dialysis. On presentation, the patient was in sepsis secondary to peritonitis with lactic acidosis, multiple electrolyte disturbances, and hypovolemic. His PD prescription was changed from his home regimen of 2.5% times five exchanges and switched to 1.5% for five exchanges. As he is continuing to have diarrhea, I will leave him on the 1.5% for now and hold off on aggressive ultrafiltration at this time. He continues to be comfortable on room air without signs of volume overload. 3. Nausea and vomiting and diarrhea. The patient's nausea and vomiting has improved. He is tolerating a renal diet this morning. He is still having watery diarrhea. Clostridium (C) difficile PCR was negative, as was a gastrointestinal (GI) tract PCR. He is off intravenous (IV) fluids and symptomatically improving. 4. Hypertension. He continues on metoprolol 25 by mouth twice a day, and his blood pressures are acceptable at this time. 5. Episode of urinary retention. The patient is back on his home dose of Flomax. 6. Hypophosphatemia. I have held his PhosLo. 7. Electrolyte disturbance. With IV fluids and improved oral intake and electrolyte replacement, the patient's potassium is now stable. His corrected calcium and magnesium levels are appropriate, as well. His phosphorus is low, and his PhosLo has been held.
[2017-06-20] MEDS: HumaLOG INSULIN (NovoLOG) PER UNIT SC SCH ×4 (09:27→22:49)
[2017-06-20] MEDS: POTASSIUM CHLORIDE 10 MEQ SR TABLET PO SCH (09:28)
[2017-06-20] MEDS: LACTOBACILLUS ACIDOPHILUS CAP (BACID) PO SCH ×3 (09:28→20:45)
[2017-06-20] MEDS: METOPROLOL TART 25 MG TABLET PO SCH ×2 (09:28→20:47)
[2017-06-20] MEDS: MAGNESIUM OXIDE 400 MG TAB (MAG-OX) PO SCH ×2 (09:28→20:45)
[2017-06-20] MEDS: ASPIRIN 81 MG ENTERIC TAB PO SCH (09:29)
[2017-06-20] MEDS: FERROUS SULFATE 325MG TAB PO SCH (09:29)
[2017-06-20] MEDS: HEPARIN SOD (PORCINE) 5000 UNITS/ML VIAL SC SCH ×2 (09:29→20:46)
[2017-06-20 10:18] LABS: BF DIFF IF INDICATED? NO (NO); PERITONEAL FL COLOR COLORLESS (COLORLESS); RBC PERITONEAL FLUID < 10 (<10mm3 cells/uL); TNC PERITONEAL FLUID < 20 cells/uL (0-20)
[2017-06-20 10:29] LABS: CALCIUM LEVEL 7.5 MG/DL (8.8-10.2); CREATININE FOR GFR 6.78 MG/DL (0.70-1.30); GLOMERULAR FILTRATION RATE 8.5 (>42); POTASSIUM SERUM 4.1 MEQ/L (3.5-5.1)
--- NOTE | 2017-06-20 11:16 | IPNPDOC ---
Text Note Date of Service The patient was seen on 06/20/17. NOTE Subjective: Patient seen and examined at bedside. No new medical complaints. Objective: General: NAD, lying comfortably in bed watching TV HEENT: NC/AT, EOMI, PERRL Lungs: CTA B/L Heart: +S1S2, RRR Abd: soft, NT, ND, +BS, dialysis catheter LLQ, area is C/D/I Ext: no edema Neuro: AAOx3 A/P: A 76-year-old with peritonitis related to peritoneal dialysis. 1. Peritonitis in the setting of peritoneal dialysis. Continue with intra- peritoneal Gentamicin, IV Cefepime. Waiting for peritoneal cultures/ sensitivities which were done outpatient. Continue to follow as per nephrology , assistance appreciated. 2. The patient has nausea, vomiting, diarrhea. Most likely this is antibiotic- associated diarrhea. C-diff, and GI panel are negative. 3. The patient has electrolyte abnormalities, which are resolved, and being managed by nephrology. 4. The patient has hypertension, which is reasonably well controlled in the current setting. 5. The patient has BPH and urinary retention. We have increased his dose of Flomax. Continue with shah catheter and will discharge home with shah catheter. Patient has had shah catheter at home in the past. The patient does follow with urology in [place]. 6. The patient has type 2 diabetes. 7. The patient has appropriate deep vein thrombosis (DVT) prophylaxis. VS,Fishbone, I+O VS, Fishbone, I+O Laboratory Tests 06/20/17 06:43 Red Blood Count 2.79 L, Mean Corpuscular Volume 106.6 H, Mean Corpuscular Hemoglobin 36.4 H, Mean Corpuscular Hemoglobin Concent 34.1, Red Cell Distribution Width 15.5 H 06/20/17 06:44 Calcium Level 7.5 L Vital Signs Date Time Temp Pulse Resp B/P (MAP) Pulse Ox O2 Delivery O2 Flow Rate FiO2 06/20/17 09:28 88 145/67 06/20/17 08:00 97.8 20 98 Room Air I&O- Last 24 Hours up to 6 AM 06/20/17 06:00 Intake Total 6600 ml Output Total 5250 ml Balance 1350 ml TESHA COLÓN MD Jun 20, 2017 11:16
[2017-06-20 12:00] VITALS: BP 119/57
[2017-06-20 16:00] VITALS: BP 132/68
[2017-06-20 20:25] VITALS: BP 113/68
[2017-06-20] MEDS: TAMSULOSIN 0.4 MG CAP PO SCH (20:45)
[2017-06-20] MEDS: GENTAMICIN SULF INJ 80MG/2ML VIAL (J1580) IP SCH (20:46)
[2017-06-20] MEDS: CEFEPIME HCL 1 GM in D5W MINI-BAG PLUS 50 ML IV SCH (20:46)
[2017-06-21 00:16] VITALS: BP 102/59
[2017-06-21 03:57] VITALS: BP 106/51
[2017-06-21] MEDS: SLF 3 ML SYR IV SCH (06:00)
[2017-06-21 06:01] LABS: MEAN CORPUSCULAR HEMOGLOBIN 37.1 pg (27.0-33.0); MEAN CORPUSCULAR HGB CONC 35.1 g/dl (32.0-36.5); MEAN CORPUSCULAR VOLUME 105.6 fl (80.0-96.0); RED CELL DISTRIBUTION WIDTH 14.9 % (11.5-14.5); WHITE BLOOD COUNT 9.6 K/mm3 (4.0-10.0)
[2017-06-21 06:19] LABS: CALCIUM LEVEL 7.4 MG/DL (8.8-10.2); CREATININE FOR GFR 6.63 MG/DL (0.70-1.30); GLOMERULAR FILTRATION RATE 8.7 (>42); POTASSIUM SERUM 3.5 MEQ/L (3.5-5.1)
--- NOTE | 2017-06-21 07:24 | IPN ---
DATE OF SERVICE: 06/20/2017 The patient is seen this morning at the bedside. His is present with him. The patient denies any repeat episodes of diarrhea. He states his bowel movements are now soft. He is tolerating p.o. intake well. He does report one episode of vomiting overnight with only small biliary emesis. He tolerated breakfast this morning well without issues as well as dinner last night. The patient is requesting to be discharged at this time. REVIEW OF SYSTEMS: Negative for headache, lightheadedness, chest pain, shortness of breath, palpitations, abdominal pain, diarrhea. Positive for nausea and vomiting times one episode overnight. VITAL SIGNS: Afebrile, temperature 98.1, pulse 71, blood pressure 119/57, respiratory rate 20, saturating 99% on room air. INTAKE AND OUTPUT: Patient is in positive fluid balance, 2.1 liters, in the past 24 hours. PHYSICAL EXAMINATION: GENERAL: Awake, alert and oriented in no acute distress, lying in bed. was present. Comfortable. HEENT: Extraocular muscles intact. Moist mucous membranes. NECK: Supple. No distended neck veins. HEART: S1, S2 regular rate and rhythm. Trace lower extremity edema present. No dependent edema. LUNGS: Clear to auscultation bilaterally. ABDOMEN: Soft. Peritoneal dialysis catheter exit site left lower quadrant clean, dry and intact. NEUROLOGIC: Alert and oriented times three. No focal deficits. PSYCHIATRIC: Appropriate mood and affect. LABORATORIES: White count 11, hemoglobin 10.1, platelets 208, sodium 140, potassium 4.1, bicarbonate 29. Peritoneal fluid nucleated cell count less than 20. The patient's cultures from the peritoneal dialysis clinic are reviewed. His PD fluid was growing Citrobacter freundii, which is sensitive to multiple antibiotics including gentamicin. INPATIENT MEDICATIONS: Reviewed by myself. Patient continues on IV cefepime and IP gentamicin. The remainder of his medications are unchanged from prior. PLAN: 1. Peritonitis with Citrobacter freundii. His initial PD fluid culture, which was collected on 06/12 is reviewed by myself. The patient's cell counts have been less than 20. He is clinically improved and stable for discharge from a renal point of view. He needs to continue with intraperitoneal gentamicin 40 mg daily for the next one week. He will be set up for an appointment in the peritoneal dialysis clinic next week as well for a repeat cell count. 2. Peritoneal dialysis. On presentation, the patient was hypovolemic with multiple electrolyte disturbances and lactic acidosis secondary to his peritonitis. He has been on 1.5% exchanges here while inpatient instead of his home regimen of 2.5% exchanges. Upon discharge, patient is instructed to return back to his home regimen of 2.5% exchanges. He has now been hemodynamically stable and clinically euvolemic. 3. Nausea, vomiting and diarrhea. Patient states that his symptoms have markedly improved. He is now reporting soft bowel movements. He did have one small episode of biliary emesis last night; however, he is tolerating his oral intake well at this time and remains off of IV fluids. 4. Urinary retention. Patient notes a history of the same. He is back on his home dose of Flomax. 5. Hypophosphatemia. Phosphorous binders have been held. This is due to decreased p.o. intake prior to admission. DISCHARGE PLANNING: Patient's outpatient peritoneal dialysis culture from 06/12 is reviewed. He can be discharged to complete one more week of intraperitoneal gentamicin 40 mg daily. He already has the antibiotic at home. Patient will be set up to be seen in the PD clinic next week for a repeat cell count. He was instructed to return to his normal PD prescription upon discharge. Discharge plan was discussed with Dr. Tilley.
[2017-06-21] MEDS: HumaLOG INSULIN (NovoLOG) PER UNIT SC SCH ×2 (07:40→12:00)
[2017-06-21 07:45] VITALS: BP 108/59
[2017-06-21] MEDS: ASPIRIN 81 MG ENTERIC TAB PO SCH (08:27)
[2017-06-21] MEDS: FERROUS SULFATE 325MG TAB PO SCH (08:27)
[2017-06-21] MEDS: POTASSIUM CHLORIDE 10 MEQ SR TABLET PO SCH (08:27)
[2017-06-21] MEDS: LACTOBACILLUS ACIDOPHILUS CAP (BACID) PO SCH (08:27)
[2017-06-21] MEDS: MAGNESIUM OXIDE 400 MG TAB (MAG-OX) PO SCH (08:28)
[2017-06-21 08:30] VITALS: BP 108/59
[2017-06-21] MEDS: METOPROLOL TART 25 MG TABLET PO SCH (08:30)
[2017-06-21] MEDS: HEPARIN SOD (PORCINE) 5000 UNITS/ML VIAL SC SCH (08:33)
[2017-06-21 09:11] LABS: BF DIFF IF INDICATED? NO (NO); PERITONEAL FL COLOR COLORLESS (COLORLESS); RBC PERITONEAL FLUID < 10 (<10mm3 cells/uL); TNC PERITONEAL FLUID < 20 cells/uL (0-20)
[2017-06-21] MEDS ORDERED: FLOM5CAP PO (09:44)
[2017-06-21] MEDS ORDERED: GENT80VL IP (09:44)
--- NOTE | 2017-06-21 10:01 | DS.PDOC ---
Discharge Summary General Date of Admission Jun 16, 2017 at 19:55 Date of Discharge 06/21/17 Specialist/Consultants Involve: TIMOTHY LAND DO Discharge Summary PROCEDURES PERFORMED DURING STAY: [None]. DISCHARGE DIAGNOSES: 1. Peritonitis. 2. ESRD on PD 3. DM 4. CAD - 2 stents 5. HTN 6. Hx of PE COMPLICATIONS/CHIEF COMPLAINT: Peritonitis. HOSPITAL COURSE: 76-year-old male presents to the emergency room with a one- week history of vomiting diarrhea and chills. He discussed this with Dr. Land and prescribe patient antibiotics for his peritonitis. Patient reported vomiting every single day. He reports vomiting every time he eats. He vomited so much she lost count and doesn't remember how many times a day. Patient also reports having diarrhea since this started. He describes it as watery and brown. Patient reports having abdominal discomforts feels like lots of gas. His is new for him. Denies any blood per rectum or black stool. Reported subjective fevers at home. Since patient was not improving he called the office today. Was told to go to the hospital to receive IV antibiotics. Cultures were obtained as outpatient, grew Citrobacter freundi. Admitted for IV antibiotics - started Gentamicin IP, and IV cefepime. Nephrology consulted. Patient's symptoms improved, and discharged home to complete another week of IP Gentamicin. Patient was hypovolemic on admission, which also resolved with adjustments with his PD exchanges. Hospital stay significant for electrolyte disturbances and lactic acidosis, secondary to peritonitis, which also resolved. Also of note, patient with urinary retention through hospital stay. Flomax dosage increased, but still requiring shah catheter. Patient states he has been discharged home with shah catheter before. Will follow up as o/p with his PCP for re-eval and likely urology. DISCHARGE MEDICATIONS: Please see below. ALLERGIES: Please see below. PHYSICAL EXAMINATION ON DISCHARGE: VITAL SIGNS: Please see below. GENERAL: NAD HEENT: NC/AT, EOMI, PERRL NECK: supple CARDIOVASCULAR EXAMINATION: +S1S2, RRR RESPIRATORY EXAMINATION: CTA B/L ABDOMINAL EXAMINATION: soft, NT, +BS, dialysis catheter in place, area C/D/I EXTREMITIES: no edema PSYCHIATRIC EXAMINATION: AAOx3 LABORATORY DATA: Please see below. ACTIVITY: [As tolerated]. DIET: renal, car consistent DISCHARGE PLAN: Discharge home with home care; shah catheter DISCHARGE INSTRUCTIONS: 1. Medications as directed including one week IP Gentamicin. 2. PD as directed. 3. Medical appointments as scheduled - nephrology, urology, PCP. ITEMS TO FOLLOWUP ON ON OUTPATIENT: 1. Repeat blood work including cell count in one week. DISCHARGE CONDITION: [Stable]. TIME SPENT ON DISCHARGE: Greater than 30 minutes. Vital Signs/I&Os Vital Signs Date Time Temp Pulse Resp B/P (MAP) Pulse Ox O2 Delivery O2 Flow Rate FiO2 06/21/17 08:30 71 108/59 06/21/17 08:05 Room Air 06/21/17 07:45 98.4 20 96 I&O- Last 24 Hours up to 6 AM 06/21/17 06:00 Intake Total 26684 ml Output Total 8765 ml Balance 1715 ml Laboratory Data Labs 24H Laboratory Tests 2 06/20/17 12:03: Bedside Glucose (Misc Panel) 158H 06/20/17 17:00: Bedside Glucose (Misc Panel) 126H 06/20/17 22:33: Bedside Glucose (Misc Panel) 136H 06/21/17 05:36: Anion Gap 11, Glomerular Filtration Rate 8.7L, Blood Urea Nitrogen 30H, Creatinine 6.63H, Sodium Level 143, Potassium Level 3.5, Chloride Level 103, Carbon Dioxide Level 29, Calcium Level 7.4L 06/21/17 06:00: Peritoneal Fluid Source PERITONEAL, Peritoneal Fluid Color COLORLESS, Peritoneal Fluid Appearance CLEAR, Peritoneal Fluid RBC (Auto) < 10, Peritoneal Fld Tot Nucleated Cells < 20 CBC/BMP Laboratory Tests 06/21/17 05:36 Red Blood Count 2.42 L, Mean Corpuscular Volume 105.6 H, Mean Corpuscular Hemoglobin 37.1 H, Mean Corpuscular Hemoglobin Concent 35.1, Red Cell Distribution Width 14.9 H, Calcium Level 7.4 L FSBS Laboratory Tests Test 06/20/17 12:03 06/20/17 17:00 06/20/17 22:33 Range/Units Bedside Glucose (Misc Panel) 158 126 136 83-110 MG/DL Microbiology Microbiology 06/16/17 Blood Culture - Final, Complete 06/16/17 Blood Culture - Final, Complete 06/17/17 Gram Stain - Final, Complete 06/17/17 Body Fluid Culture - Final, Complete 06/19/17 Clostridium difficile (PCR) - Final, Complete 06/17/17 Gastrointestinal Tract Panel (PCR) - Final, Complete 06/18/17 Urine Culture - Final, Complete 06/16/17 Urine Culture - Final, Complete Discharge Medications Scheduled (Iron) 325 Mg Tab, 325 MG PO BID, (Reported) (Aspirin EC Low Dose) 81 Mg Tab, 81 MG PO DAILY, (Reported) (Sandi-Deisy) 1 Tab Tab, 1 TAB PO DAILY, (Reported) Ascorbic Acid (Ascorbic Acid) 500 Mg Tab, 500 MG PO DAILY, (Reported) Calcium Acetate (Phoslo) 667 Mg Cap, 667 MG PO WM, (Reported) HAS NOT BEEN EATING, SO HAS NOT TAKEN IN APPROX A WEEK Gentamicin Sulfate (Gentamicin Sulfate) 80 Mg/2 Ml Soln, 40 MG IP DAILY@2200 Glimepiride (Glimepiride) 4 Mg Tab, 4 MG PO BID, (Reported) Methoxy Polyethylene Glycol-Ep (Mircera) 100 Mcg/0.3 Ml Inj, 300 MCG INJ Q2WK, ( Reported) Metoprolol Tartrate (Metoprolol Tartrate) 25 Mg Tab, 25 MG PO BID, (Reported) Potassium Chloride (K-Tabs) 10 Meq Tab, 10 MEQ PO BID, (Reported) Tamsulosin Hydrochloride (Flomax) 0.4 Mg Cap, 0.8 MG PO QHS Scheduled PRN Acetaminophen (Tylenol) 325 Mg Tab, 650 MG PO Q6HP PRN for PAIN / FEVER, ( Reported) Allergies Coded Allergies: No Known Allergies (Unverified , 06/16/17) TESHA COLÓN MD Jun 21, 2017 10:01
--- NOTE | 2017-06-22 07:03 | IPN ---
DATE OF SERVICE: 06/21/2017 SUBJECTIVE: The patient is seen this morning at the bedside. He feels well. He is tolerating an oral diet. He reports soft bowel movements without any watery diarrhea. No nausea, no vomiting. He remains with Hudson catheter in place. REVIEW OF SYSTEMS: Negative for headache, chest pain, palpitations, shortness of breath. Negative for dyspnea on exertion. Negative for nausea, vomiting, diarrhea. Negative for swelling. Positive for urinary retention requiring Hudson. The remainder of review of systems is negative. PHYSICAL EXAMINATION: VITAL SIGNS: Afebrile, temperature 98.4, pulse 97, respiratory rate 20, blood pressure 108/59, saturating 96% on room air. INTAKE AND OUTPUT: Has been in positive fluid balance the past 24 hours, 1.6 liters with net retention on peritoneal dialysis exchanges. Weight on the bed scale today 103.3 kg. GENERAL: Awake, alert and oriented times four, lying in bed in no acute distress. HEAD/NECK: Normocephalic, atraumatic. Extraocular muscles intact. Pupils reactive to light. Moist mucous membranes. Neck is supple. CARDIOVASCULAR: S1, S2 regular rate and rhythm. 2+ radial pulse. 1+ pitting edema in the lower extremities bilaterally. RESPIRATORY: Clear to auscultation bilaterally. ABDOMEN: Soft, nontender. PD catheter exit site without trauma. EXTREMITIES: 1+ edema bilateral lower extremities. NEUROLOGIC: No focal deficits, appropriately interactive, pleasantly conversational. PSYCHIATRIC: Appropriate mood and affect. LABORATORIES: White count 9.6, hemoglobin 9.0, platelets 186, sodium 143, potassium 3.5, bicarbonate 29. Peritoneal fluid cell count less than 10 total nucleated cells. Glucose 136. INPATIENT MEDICATIONS: Reviewed by myself. No changes in the past 24 hours. ASSESSMENT/PLAN: 1. Citrobacter freundii peritonitis associated with PD. Patient is stable to be discharged at this point to complete six more days of intraperitoneal gentamicin 40 mg daily at home. Patient has the antibiotic supplies at home already. He will be seen in the PD clinic early next week to repeat a cell count. 2. Peritoneal dialysis. Patient was admitted volume deplete with electrolyte disturbances. While he was inpatient, he was receiving 1.5% exchanges to help with his volume status. At this point, he now euvolemic to mildly hypervolemic with 1+ pitting edema in the lower extremities. As he is tolerating his oral intake well at this time, he is instructed to go back on his 2.5% exchanges per his home regimen upon discharge. His current inpatient regimen at this time is 1.5% alternating with 2.5% and at home he will resume on all 2.5% exchanges in order to maintain euvolemia and avoid further volume overload. 3. Urinary retention. Patient has a Hudson catheter. He is on his home dose of Flomax. He will followup with urology as an outpatient. Plan of care was discussed with the patient and with Dr. Tilley. Patient is setup for an appointment in the PD clinic next week and instructed to call if he has any recurrence of nausea, vomiting or diarrhea.
== END 2017-06-21 13:12 | disposition home or self-care (01) | DRG 371 ==
LOC: M ED 13:57 → M ED INP 19:55 → M PCU 21:12
PROVIDERS: ADMIT Hospitalist; ATTEND Internal Medicine
DX: K65.0 Generalized (acute) peritonitis (principal); N18.6 End stage renal disease; I12.0 Hypertensive chronic kidney disease with stage 5 chronic kidney disease or end stage renal disease; E87.2 Acidosis; I25.10 Atherosclerotic heart disease of native coronary artery without angina pectoris; E11.9 Type 2 diabetes mellitus without complications; Z86.711 Personal history of pulmonary embolism; Z79.899 Other long term (current) drug therapy; Z79.82 Long term (current) use of aspirin; I35.0 Nonrheumatic aortic (valve) stenosis; E78.5 Hyperlipidemia, unspecified; N40.0 Benign prostatic hyperplasia without lower urinary tract symptoms; E87.6 Hypokalemia; E83.42 Hypomagnesemia; E83.51 Hypocalcemia; D63.1 Anemia in chronic kidney disease; R33.8 Other retention of urine; E83.39 Other disorders of phosphorus metabolism

== ENCOUNTER → 2017-07-25 | Outpatient (CLI) | payer MEDICARE ==
[~2017-07-25] MED LIST changes: +ASCO500T PO; +FLOM5CAP PO; +GENT80VL IP; +GLIM4TAB PO; +K-TA10TA PO; +LEVO500T3 PO; +METO25TA4 PO; +RENATAB5 PO; +[UNRECOGNIZED DRUG - CODE] INJ
--- NOTE | 2017-07-25 15:15 | REP ---
PA and lateral chest: Comparisons are the portable chest dated 11/16/[address] of three or 2008. There are no infiltrates or effusions. 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 There is a fracture of the posterior arch of the left sixth rib, not present on either comparison study. Cardiac size is normal. The pati, mediastinum, and bony thorax are unchanged. There is osteoarthritis of the shoulders bilaterally. There are surgical clips in the soft tissues of the neck on the left. Impression: No acute cardiopulmonary changes. Fracture of the posterior arch of the left sixth rib, not present previously. 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 Bilateral shoulder osteoarthritis. Surgical clips in the neck on the right. Signed by Seymour Parisi MD 07/25/2017 03:06 P
== END ==
LOC: M SMT 14:42
PROVIDERS: ATTEND Family Medicine
DX: I50.30 Unspecified diastolic (congestive) heart failure (principal); R05 Cough

== ENCOUNTER → 2017-09-04 | Outpatient (CLI) | payer MEDICARE ==
--- NOTE | 2017-09-04 14:30 | REP ---
CAROTID ULTRASOUND: Real-time ultrasound evaluation and duplex Doppler interrogation of the extracranial carotid vasculature is performed. There is mild plaquing and narrowing in both carotid bulbs extending into the internal and external carotid arteries. Luminal narrowing is less than 50%. There is no evidence of hemodynamically significant stenosis of either internal carotid artery. Normal flow velocities are seen. The vertebral arteries demonstrate normal direction of flow. RIGHT LEFT Peak systolic velocity ICA 48.3 cm/s 78.8 cm/s End diastolic velocity ICA 10.6 cm/s 55 cm/s Peak systolic velocity CCA 78.7 cm/s 61.8 cm/s Peak systolic velocity ECA 104.9 cm/s 118.4 cm/s ICA/CCA ratio 0.61 1.28 IMPRESSION: Bilateral luminal narrowing of the internal carotid arteries less than 50%. No evidence of hemodynamically significant stenosis. Signed by Seymour Bar MD 09/04/2017 02:22 P
== END ==
LOC: M RAD 12:45
PROVIDERS: ATTEND Surgery Vascular Surgery
DX: I65.29 Occlusion and stenosis of unspecified carotid artery (principal)

== ENCOUNTER 2018-03-12 13:40 | Emergency (ER) | payer MEDICARE ==
[2018-03-12 14:50] LABS: BASO # 0.1 10^3/uL (0.0-0.2); BASO % 0.5 % (0.0-1.0); EOS # 0.2 10^3/uL (0.0-0.50); EOS % 2.4 % (0.0-3.0); HEMATOCRIT 31.4 % (42.0-52.0); HEMOGLOBIN 10.4 g/dl (13.5-17.5); IMMATURE GRANULOCYTE % 0.4 % (0-3.0); LYMPH # 2.2 10^3/uL (1.5-4.5); LYMPH % 21.7 % (24.0-44.0); MEAN CORPUSCULAR HEMOGLOBIN 35.1 pg (27.0-33.0); MEAN CORPUSCULAR HGB CONC 33.1 g/dl (32.0-36.5); MEAN CORPUSCULAR VOLUME 106.1 fl (80.0-96.0); MONO % 9.5 % (0.0-5.0); NEUTROPHILS # 6.6 10^3/uL (1.8-7.7); NEUTROPHILS % 65.5 % (36.0-66.0); PLATELET COUNT, AUTOMATED 124 10^3/uL (150-450); RED BLOOD COUNT 2.96 10^6/uL (4.30-6.10); RED CELL DISTRIBUTION WIDTH 16.3 % (11.5-14.5)
[2018-03-12 15:00] LABS: INR 1.02; PROTHROMBIN TIME 13.5 SECONDS (12.4-14.5)
[2018-03-12] MEDS: ASPIRIN 81 MG CHEW TABLET PO (15:00)
[2018-03-12 15:01] LABS: PARTIAL THROMBOPLASTIN TIME 24.8 SECONDS (26.8-37.9)
[2018-03-12 15:15] LABS: ALBUMIN 2.8 GM/DL (3.2-5.2); ALBUMIN/GLOBULIN RATIO 0.88 (1.00-1.93); ALKALINE PHOSPHATASE 124 U/L (45-117); ALT/SGPT 27 U/L (12-78); ANION GAP 12 MEQ/L (8-16); AST/SGOT 28 U/L (7-37); BILIRUBIN,DIRECT 0.2 MG/DL (0.0-0.2); BILIRUBIN,TOTAL 0.4 MG/DL (0.2-1.0); BLOOD UREA NITROGEN 60 MG/DL (7-18); CALCIUM LEVEL 8.5 MG/DL (8.8-10.2); CARBON DIOXIDE LEVEL 28 MEQ/L (21-32); CHLORIDE LEVEL 95 MEQ/L (98-107); CPK CREATINE PHOSPHOKINASE 165 U/L (39-308); GLOMERULAR FILTRATION RATE 5.4 (>42); GLUCOSE, FASTING 181 MG/DL (70-100); LIPASE 426 U/L (73-393); POTASSIUM SERUM 4.1 MEQ/L (3.5-5.1); SODIUM LEVEL 135 MEQ/L (136-145)
[2018-03-12 15:23] LABS: CREATININE FOR GFR 9.97 MG/DL (0.70-1.30); TROPONIN I 4.08 NG/ML (< 0.10)
[2018-03-12 15:34] LABS: CK-MB VALUE MASS 12.9 NG/ML (<3.6); MB/CK RELATIVE INDEX 7.81 (< OR =4); NT-PRO BNP 92726 PG/ML (<450)
[2018-03-12] MEDS: HEPARIN SOD (PORCINE) 5000 UNITS/ML VIAL IV (15:56)
[2018-03-12] MEDS ORDERED: HEPARIN DRIP 25,000 UNITS in APPROPRIATE DILUENT 1 EA IV (16:00)
[2018-03-12] MEDS: CLOPIDOGREL 300 MG TAB (PLAVIX) PO (16:03)
== END 2018-03-12 16:47 | disposition short-term general hospital (02) ==
LOC: M ED 13:40
DX: I21.4 Non-ST elevation (NSTEMI) myocardial infarction (principal); I48.91 Unspecified atrial fibrillation; N17.9 Acute kidney failure, unspecified; R06.02 Shortness of breath; I12.0 Hypertensive chronic kidney disease with stage 5 chronic kidney disease or end stage renal disease; E11.9 Type 2 diabetes mellitus without complications; C85.90 Non-Hodgkin lymphoma, unspecified, unspecified site; D64.9 Anemia, unspecified; I35.0 Nonrheumatic aortic (valve) stenosis; N18.6 End stage renal disease; Z99.2 Dependence on renal dialysis; E78.9 Disorder of lipoprotein metabolism, unspecified; N40.0 Benign prostatic hyperplasia without lower urinary tract symptoms; Z86.711 Personal history of pulmonary embolism; Z79.899 Other long term (current) drug therapy; Z79.82 Long term (current) use of aspirin; Z79.2 Long term (current) use of antibiotics
CPT/HCPCS: 71046